=== PATIENT | male | born 1990 | race Caucasian/White ===

== ENCOUNTER 2019-01-10 08:33 | Emergency (ER) | payer OTHER, MEDICAID ==
[~2019-01-10] VITALS: Ht 175.3 cm; Wt 75.0 kg
[~2019-01-10 08:33] MED LIST: DIVA500T69 PO; GABA-533 PO; MIRT15 PO; QUET200T PO
[2019-01-10] MEDS ORDERED: ONDANSETRON HCL 4 MG/2 ML VIAL IVP ONE (08:45)
[2019-01-10] MEDS ORDERED: SODIUM CHLORIDE 0.9% 1,000 ML IV ONE (08:45)
[2019-01-10 09:10] LABS: BASOPHILS % (AUTO) 0.5 % (0.0-2.0); EOSINOPHILS % (AUTO) 0.9 % (1.0-6.0); HEMATOCRIT 44.3 % (41-53); HEMOGLOBIN 14.3 g/dL (13.5-17.5); LYMPHOCYTES # (AUTO) 1.8 K/uL (1.0-4.8); LYMPHOCYTES % (AUTO) 17.4 % (22.0-44.0); MEAN CORPUSCULAR HEMOGLOBIN 28.5 pg (26.0-34.0); MEAN CORPUSCULAR HGB CONC 32.3 G/dL (31.0-37.0); MEAN CORPUSCULAR VOLUME 88 fL (80-100); MONOCYTES # (AUTO) 0.4 K/uL (0.1-1.0); MONOCYTES % (AUTO) 3.7 % (2.0-9.0); NEUTROPHILS # (AUTO) 8.1 K/uL (1.8-7.7); NEUTROPHILS % (AUTO) 77.5 % (40.0-70.0); PLATELET COUNT (AUTO) 350 K/uL (150-450); RED BLOOD CELL COUNT(AUTO) 5.02 MIL/uL (4.50-5.90); RED CELL DISTRIBUTION WIDTH 14.3 % (11.5-14.5)
[2019-01-10 09:19] LABS: ANION GAP 10 mmol/L (8-16); CALCIUM, TOTAL 10.4 mg/dL (8.8-10.5); CARBON DIOXIDE 28 mmol/L (22-29); CHLORIDE 105 mmol/L (98-107); CREATININE 0.82 mg/dL (0.60-1.30); GLOMERULAR FILTR. RATE CALC > 60 mL/min (>60); GLUCOSE,RANDOM 107 mg/dL (70-110); POTASSIUM 3.4 mmol/L (3.5-5.1); SODIUM SERUM 143 mmol/L (136-145); UREA NITROGEN, BLOOD 17 mg/dL (7-18)
[2019-01-10 09:25] LABS: ALANINE AMINOTRANSFERASE 38 U/L (12-78); ALBUMIN 3.9 g/dL (3.4-5.0); ALKALINE PHOSPHATASE 72 U/L (46-116); ASPARTATE AMINOTRANSFERASE 25 U/L (15-37); BILIRUBIN,TOTAL 0.3 mg/dL (0.1-1.0); LIPASE 379 U/L (73-393); TOTAL PROTEIN, SERUM 7.9 g/dL (6.4-8.2)
[2019-01-10 13:04] VITALS: BP 131/78
== END 2019-01-10 13:39 | disposition home or self-care (01) ==
LOC: EMS 08:34
DX: T62.0X1A Toxic effect of ingested mushrooms, accidental (unintentional), initial encounter (principal); F25.9 Schizoaffective disorder, unspecified; F41.9 Anxiety disorder, unspecified; F31.9 Bipolar disorder, unspecified; F17.210 Nicotine dependence, cigarettes, uncomplicated; F12.90 Cannabis use, unspecified, uncomplicated; Z59.0 Homelessness; Y92.89 Other specified places as the place of occurrence of the external cause
CPT/HCPCS: 36415; 80053; 83690; 85025; 96374; 99283; G0480; J2405; J7030

== ENCOUNTER 2022-01-20 12:55 | Inpatient (IN) | payer MEDICAID, OTHER ==
[~2022-01-20] VITALS: Ht 175.3 cm; Wt 84.9 kg
[2022-01-20] MEDS ORDERED: QUET25TA PO (12:59)
[2022-01-20] MEDS ORDERED: BUSP5TAB20 PO (12:59)
[2022-01-20 13:28] LABS: COVID AG,FIA SOURCE NASOPHARYNGEAL
[2022-01-20 13:30] LABS: BASOPHILS % (AUTO) 0.9 % (0.0-2.0); EOSINOPHILS % (AUTO) 2.6 % (1.0-6.0); HEMATOCRIT 39.1 % (41-53); LYMPHOCYTES # (AUTO) 2.6 K/uL (1.0-4.8); LYMPHOCYTES % (AUTO) 21.3 % (22.0-44.0); MEAN CORPUSCULAR HEMOGLOBIN 28.5 pg (26.0-34.0); MEAN CORPUSCULAR HGB CONC 33.2 G/dL (31.0-37.0); MEAN CORPUSCULAR VOLUME 86 fL (80-100); MONOCYTES # (AUTO) 1.3 K/uL (0.1-1.0); MONOCYTES % (AUTO) 10.6 % (2.0-9.0); NEUTROPHILS # (AUTO) 7.8 K/uL (1.8-7.7); NEUTROPHILS % (AUTO) 64.6 % (40.0-70.0); PLATELET COUNT (AUTO) 373 K/uL (150-450); RED BLOOD CELL COUNT(AUTO) 4.55 MIL/uL (4.50-5.90)
[2022-01-20 13:39] LABS: ANION GAP 7 mmol/L (8-16); CARBON DIOXIDE 27 mmol/L (22-29); CHLORIDE 101 mmol/L (98-107); CREATININE 0.88 mg/dL (0.60-1.30); GLOMERULAR FILTR. RATE CALC > 60 mL/min (>60); GLUCOSE,RANDOM 100 mg/dL (70-110); POTASSIUM 3.5 mmol/L (3.5-5.1); SODIUM SERUM 135 mmol/L (136-145); UREA NITROGEN, BLOOD 7 mg/dL (7-18)
[2022-01-20 13:45] LABS: ALANINE AMINOTRANSFERASE 152 U/L (12-78); ALBUMIN 3.7 g/dL (3.4-5.0); ALKALINE PHOSPHATASE 87 U/L (46-116); ASPARTATE AMINOTRANSFERASE 54 U/L (15-37); BILIRUBIN,TOTAL 0.5 mg/dL (0.1-1.0); TOTAL PROTEIN, SERUM 7.3 g/dL (6.4-8.2)
[2022-01-20 14:50] LABS: AMPHET/METH SCREEN,URINE NEGATIVE (NEGATIVE); BARBITURATE SCREEN, URINE NEGATIVE (NEGATIVE); BENZODIAZEPINES SCREEN,URINE NEGATIVE (NEGATIVE); CANNABINOID SCREEN,URINE POSITIVE (NEGATIVE); COCAINE SCREEN,URINE NEGATIVE (NEGATIVE); METHADONE SCREEN, URINE NEGATIVE (NEGATIVE); OPIATE SCREEN,URINE NEGATIVE (NEGATIVE)
[2022-01-20 14:54] LABS: PHENCYCLIDINE SCREEN,URINE NEGATIVE (NEGATIVE)
[2022-01-20] MEDS ORDERED: ZOLPIDEM TARTRATE 10 MG TABLET PO PRN (15:45)
[2022-01-20] MEDS: LORazepam 2 MG TABLET PO PRN (19:25)
[2022-01-20] MEDS: HALOPERIDOL 5 MG TABLET PO PRN (19:25)
[2022-01-20 23:14] VITALS: BP 110/68
[2022-01-21] MEDS ORDERED: DiphenhydrAMINE HCL 50 MG/ML VIAL IM ONE (04:15)
[2022-01-21] MEDS ORDERED: LORazepam 2 MG/ML VIAL IM ONE (04:15)
[2022-01-21] MEDS ORDERED: HALOPERIDOL LACTATE 5 MG/ML VIAL IM ONE (04:15)
[2022-01-21] MEDS ORDERED: LORazepam 2 MG/ML VIAL ONE (04:18)
[2022-01-21 07:38] LABS: HEMATOCRIT 37.7 % (41-53); HEMOGLOBIN 12.7 g/dL (13.5-17.5); MEAN CORPUSCULAR HGB CONC 33.6 G/dL (31.0-37.0); MEAN CORPUSCULAR VOLUME 86 fL (80-100); PLATELET COUNT (AUTO) 316 K/uL (150-450); RED BLOOD CELL COUNT(AUTO) 4.37 MIL/uL (4.50-5.90)
[2022-01-21 07:48] LABS: HEMOGLOBIN A1C 5.2 % (3.8-5.6)
[2022-01-21] MEDS ORDERED: DOCUSATE SODIUM 100 MG CAPSULE PO PRN (08:00)
[2022-01-21] MEDS ORDERED: IBUPROFEN 400 MG TABLET PO PRN (08:00)
[2022-01-21] MEDS ORDERED: LOPERAMIDE HCL 2 MG CAPSULE PO PRN (08:00)
[2022-01-21] MEDS ORDERED: ALBUTEROL SULFATE HFA 90 MCG/PUFF 8 GM INHALER IH PRN (08:00)
[2022-01-21] MEDS ORDERED: MAG HYDROX/AL HYDROX/SIMETH ES 30 ML SUSPENSION UDCUP PO PRN (08:00)
[2022-01-21] MEDS ORDERED: NICOTINE 14 MG/24 HOUR PATCH TD PRN (08:00)
[2022-01-21] MEDS ORDERED: GuaiFENesin/D-METHORPHAN [SUGAR-FREE] 200-20MG/10 ML SYRUP UDCUP PO PRN (08:00)
[2022-01-21] MEDS ORDERED: PETROLATUM,WHITE 28 GM JELLY TP PRN (08:00)
[2022-01-21] MEDS ORDERED: ACETAMINOPHEN 325 MG TABLET PO PRN (08:00)
[2022-01-21] MEDS ORDERED: ONDANSETRON HCL 4 MG TABLET PO PRN (08:00)
[2022-01-21] MEDS ORDERED: CloNIDine HCL 0.1 MG TABLET PO PRN (08:00)
[2022-01-21] MEDS ORDERED: MAGNESIUM HYDROXIDE SUSPENSION 30 ML UDCUP PO PRN (08:00)
[2022-01-21 08:07] LABS: ALANINE AMINOTRANSFERASE 103 U/L (12-78); ALBUMIN 2.8 g/dL (3.4-5.0); ALKALINE PHOSPHATASE 63 U/L (46-116); ANION GAP 8 mmol/L (8-16); ASPARTATE AMINOTRANSFERASE 38 U/L (15-37); BILIRUBIN,TOTAL 0.4 mg/dL (0.1-1.0); CALCIUM, TOTAL 7.9 mg/dL (8.8-10.5); CARBON DIOXIDE 26 mmol/L (22-29); CHLORIDE 105 mmol/L (98-107); CHOL/HDL RATIO 2.9 (4.2-7.3); CHOLESTEROL 105 mg/dL (131-200); CREATININE 0.67 mg/dL (0.60-1.30); FREE T4 (FREE THYROXINE) 1.35 ng/dL (0.76-1.46); GLUCOSE,RANDOM 93 mg/dL (70-110); HDL CHOLESTEROL 36 mg/dL (40-60); LDL CHOL (CALC.) 59 mg/dL (0-130); POTASSIUM 3.2 mmol/L (3.5-5.1); SODIUM SERUM 139 mmol/L (136-145); THYROID STIMULATING HORMONE 0.38 uIU/mL (0.36-3.74); TOTAL PROTEIN, SERUM 5.8 g/dL (6.4-8.2); TRIGLYCERIDES 50 mg/dL (15-150); UREA NITROGEN, BLOOD 5 mg/dL (7-18)
[2022-01-21 08:08] LABS: GLOMERULAR FILTR. RATE CALC > 60 mL/min (>60)
[2022-01-21 08:34] LABS: BAND NEUTROPHILS % (MANUAL) 1 % (0-5); EOSINOPHILS % (MANUAL) 16 % (1-6); LYMPHOCYTES % (MANUAL) 16 % (22-44); MONOCYTES % (MANUAL) 9 % (2-9); SEGMENTED NEUTROPHILS % 58 % (40-70)
[2022-01-21 09:10] VITALS: BP 121/74
[2022-01-21] MEDS ORDERED: HALO10TA20 PO (10:47)
[2022-01-21] MEDS ORDERED: LITH300C3 PO (10:47)
[2022-01-21] MEDS ORDERED: BUSP10TA3 PO (10:47)
[2022-01-21] MEDS: LITHIUM CARBONATE 300 MG CAPSULE PO SCH ×2 (11:19→16:04)
[2022-01-21] MEDS: BusPIRone HCL 10 MG TABLET PO SCH ×2 (11:19→20:01)
[2022-01-21 11:55] LABS: APPEARANCE,URINE CLEAR (CLEAR); BILIRUBIN,URINE NEGATIVE (NEGATIVE); GLUCOSE, URINE (UA) NEGATIVE (NEGATIVE); KETONES,URINE NEGATIVE (NEGATIVE); LEUKOCYTE ESTERASE ,URINE NEGATIVE (NEGATIVE); NITRATE,URINE NEGATIVE (NEGATIVE); OCCULT BLOOD,URINE NEGATIVE (NEGATIVE); PROTEIN,URINE NEGATIVE (NEGATIVE); SPECIFIC GRAVITIY, URINE 1.002 (1.003-1.030); UROBILINOGEN,URINE <=1.0 mg/dL (<=1.0)
[2022-01-21] MEDS: LORazepam 2 MG TABLET PO PRN (15:10)
[2022-01-21] MEDS: HALOPERIDOL 5 MG TABLET PO PRN (15:10)
[2022-01-21] MEDS: HALOPERIDOL 10 MG TABLET PO SCH (20:01)
[2022-01-21 20:58] VITALS: BP 139/80
[2022-01-22 08:27] VITALS: BP 118/70
[2022-01-22] MEDS: LITHIUM CARBONATE 300 MG CAPSULE PO SCH ×2 (08:41→16:33)
[2022-01-22] MEDS: BusPIRone HCL 10 MG TABLET PO SCH ×2 (08:41→20:40)
[2022-01-22] MEDS: LORazepam 2 MG TABLET PO PRN (13:22)
[2022-01-22] MEDS ORDERED: LITH600C5 PO (20:37)
[2022-01-22 20:39] VITALS: BP 121/76
[2022-01-22] MEDS: HALOPERIDOL 10 MG TABLET PO SCH (20:40)
[2022-01-23] MEDS: LITHIUM CARBONATE 300 MG CAPSULE PO SCH ×2 (09:04→17:31)
[2022-01-23] MEDS: BusPIRone HCL 10 MG TABLET PO SCH ×2 (09:04→20:50)
[2022-01-23 09:53] VITALS: BP 124/70
[2022-01-23] MEDS: LORazepam 2 MG TABLET PO PRN (18:43)
[2022-01-23 20:22] VITALS: BP 138/79
[2022-01-23] MEDS: HALOPERIDOL 10 MG TABLET PO SCH (20:50)
[2022-01-24] MEDS: LITHIUM CARBONATE 300 MG CAPSULE PO SCH ×2 (08:39→16:38)
[2022-01-24] MEDS: BusPIRone HCL 10 MG TABLET PO SCH ×2 (08:39→20:32)
[2022-01-24 08:56] VITALS: BP 143/96
[2022-01-24] MEDS: LORazepam 2 MG TABLET PO PRN (14:20)
[2022-01-24] MEDS: HALOPERIDOL 10 MG TABLET PO SCH (20:32)
[2022-01-24 20:49] VITALS: BP 141/78
[2022-01-25] MEDS: LITHIUM CARBONATE 300 MG CAPSULE PO SCH ×2 (08:35→16:36)
[2022-01-25] MEDS: BusPIRone HCL 10 MG TABLET PO SCH ×2 (08:35→20:21)
[2022-01-25 09:26] VITALS: BP 140/90
[2022-01-25] MEDS: LORazepam 2 MG TABLET PO PRN ×2 (09:39→16:36)
[2022-01-25] MEDS: HALOPERIDOL 5 MG TABLET PO PRN ×2 (09:39→16:36)
[2022-01-25 16:36] VITALS: BP 129/86
[2022-01-25] MEDS: HALOPERIDOL 10 MG TABLET PO SCH (20:21)
[2022-01-25 21:12] VITALS: BP_SYST 118; BP_SYST 129; BP_DIAS 77; BP_DIAS 86
[2022-01-26] MEDS: LORazepam 2 MG TABLET PO PRN ×2 (07:54→18:58)
[2022-01-26] MEDS: HALOPERIDOL 5 MG TABLET PO PRN (07:55)
[2022-01-26] MEDS: BusPIRone HCL 10 MG TABLET PO SCH ×2 (08:25→20:34)
[2022-01-26 08:26] VITALS: BP 140/74
[2022-01-26] MEDS: LITHIUM CARBONATE 300 MG CAPSULE PO SCH ×2 (08:26→16:31)
[2022-01-26 20:15] VITALS: BP 106/61
[2022-01-26] MEDS: HALOPERIDOL 10 MG TABLET PO SCH (20:34)
[2022-01-27 08:27] VITALS: BP 122/64
[2022-01-27] MEDS: BusPIRone HCL 10 MG TABLET PO SCH ×2 (09:21→20:45)
[2022-01-27] MEDS: HALOPERIDOL 10 MG TABLET PO SCH ×2 (09:21→20:45)
[2022-01-27] MEDS: LITHIUM CARBONATE 300 MG CAPSULE PO SCH ×2 (09:21→16:25)
[2022-01-27] MEDS: LORazepam 2 MG TABLET PO PRN ×2 (09:46→18:58)
[2022-01-27 22:42] VITALS: BP 136/72
[2022-01-28 08:54] VITALS: BP 129/89
[2022-01-28] MEDS: BusPIRone HCL 10 MG TABLET PO SCH ×2 (08:55→20:07)
[2022-01-28] MEDS: LITHIUM CARBONATE 300 MG CAPSULE PO SCH ×2 (08:55→16:52)
[2022-01-28] MEDS: HALOPERIDOL 10 MG TABLET PO SCH ×2 (08:55→20:07)
[2022-01-28 20:35] VITALS: BP 132/86
[2022-01-29] MEDS: LORazepam 2 MG TABLET PO PRN (05:42)
[2022-01-29] MEDS: HALOPERIDOL 5 MG TABLET PO PRN (05:42)
[2022-01-29 08:21] VITALS: BP 121/69
[2022-01-29] MEDS: HALOPERIDOL 10 MG TABLET PO SCH ×2 (08:39→20:07)
[2022-01-29] MEDS: BusPIRone HCL 10 MG TABLET PO SCH ×2 (08:39→20:07)
[2022-01-29] MEDS: LITHIUM CARBONATE 300 MG CAPSULE PO SCH ×2 (08:40→16:59)
[2022-01-29 20:18] VITALS: BP 127/61
[2022-01-30] MEDS: BusPIRone HCL 10 MG TABLET PO SCH ×2 (08:40→20:41)
[2022-01-30] MEDS: HALOPERIDOL 10 MG TABLET PO SCH ×2 (08:41→20:42)
[2022-01-30] MEDS: LITHIUM CARBONATE 300 MG CAPSULE PO SCH ×2 (08:41→16:55)
[2022-01-30 08:43] VITALS: BP 143/94
[2022-01-30] MEDS: LORazepam 2 MG TABLET PO PRN (09:12)
[2022-01-30] MEDS ORDERED: HALOPERIDOL LACTATE 5 MG/ML VIAL ONE ×2 (16:07→16:08)
[2022-01-30] MEDS ORDERED: LORazepam 2 MG/ML VIAL ONE (16:07)
[2022-01-30] MEDS ORDERED: DiphenhydrAMINE HCL 50 MG/ML VIAL ONE ×2 (16:07→16:08)
[2022-01-30] MEDS ORDERED: DiphenhydrAMINE HCL 50 MG/ML VIAL IM ONE (16:15)
[2022-01-30] MEDS ORDERED: LORazepam 2 MG/ML VIAL IM ONE (16:15)
[2022-01-30] MEDS ORDERED: HALOPERIDOL LACTATE 5 MG/ML VIAL IM ONE (16:15)
[2022-01-30 20:39] VITALS: BP 130/64
[2022-01-31] MEDS ORDERED: LORazepam 2 MG/ML VIAL IM ONE (03:00)
[2022-01-31] MEDS ORDERED: HALOPERIDOL LACTATE 5 MG/ML VIAL IM ONE (03:00)
[2022-01-31] MEDS ORDERED: DiphenhydrAMINE HCL 50 MG/ML VIAL IM ONE (03:00)
[2022-01-31] MEDS: BusPIRone HCL 10 MG TABLET PO SCH (09:12)
[2022-01-31] MEDS: HALOPERIDOL 10 MG TABLET PO SCH (09:12)
[2022-01-31] MEDS: LITHIUM CARBONATE 300 MG CAPSULE PO SCH (09:12)
== END 2022-01-31 10:15 | disposition left against medical advice (07) | DRG 750 ==
LOC: EMS 12:55 → B2S 19:10 → B3A 01-30 17:38
PROVIDERS: ADMIT Psychiatry & Neurology Psychiatry; ATTEND Psychiatry & Neurology Psychiatry
DX: F20.0 Paranoid schizophrenia (principal); E87.1 Hypo-osmolality and hyponatremia; R45.851 Suicidal ideations; D72.829 Elevated white blood cell count, unspecified; Z20.822 Contact with and (suspected) exposure to COVID-19; F12.10 Cannabis abuse, uncomplicated; D64.9 Anemia, unspecified; Z53.29 Procedure and treatment not carried out because of patient's decision for other reasons; E87.6 Hypokalemia; F10.10 Alcohol abuse, uncomplicated; F17.210 Nicotine dependence, cigarettes, uncomplicated; F31.9 Bipolar disorder, unspecified; Z59.00 Homelessness unspecified; Z79.899 Other long term (current) drug therapy; Z71.41 Alcohol abuse counseling and surveillance of alcoholic; Z71.51 Drug abuse counseling and surveillance of drug abuser
CPT/HCPCS: 80053; 80061; 80178; 81003; 83036; 84132; 84439; 84443; 85007; 85025; 85027; 99285; G0480; J1200; J1630; J2060

== ENCOUNTER 2023-05-15 19:01 | Inpatient (IN) | payer MEDICAID ==
[~2023-05-15] VITALS: Ht 180.3 cm; Wt 69.5 kg
[2023-05-15] MEDS ORDERED: TUBERCULIN, PURIFIED PROTEIN DERIVATIVE 5 TU/0.1 ML SYRINGE ID ONE (19:45)
[2023-05-15] MEDS ORDERED: GuaiFENesin/D-METHORPHAN [SUGAR-FREE] 200-20MG/10 ML SYRUP UDCUP PO PRN (19:45)
[2023-05-15] MEDS ORDERED: LOPERAMIDE HCL 2 MG CAPSULE PO PRN (19:45)
[2023-05-15] MEDS ORDERED: ACETAMINOPHEN 325 MG TABLET PO PRN (19:45)
[2023-05-15] MEDS ORDERED: MAGNESIUM HYDROXIDE SUSPENSION 30 ML UDCUP PO PRN (19:45)
[2023-05-15] MEDS ORDERED: PROMETHAZINE HCL 25 MG TABLET PO PRN (19:45)
[2023-05-15] MEDS ORDERED: MAG HYDROX/ALUMINUM HYD/SIMETH ES 30 ML SUSPENSION UDCUP PO PRN (19:45)
[2023-05-15] MEDS ORDERED: HydrOXYzine PAMOATE 50 MG CAPSULE PO PRN (19:45)
[2023-05-15] MEDS ORDERED: ZOLPIDEM TARTRATE 10 MG TABLET PO PRN (19:45)
[2023-05-15 19:46] LABS: GLUCOMETER DEV NAME(LOC) POC.BV; POC SARS-COV2 AG, FIA NEGATIVE (NEGATIVE)
[2023-05-15 19:55] VITALS: BP 124/66; PULSE 83; RESP 18; TEMP 98.4
[2023-05-15] MEDS ORDERED: LEVE500T8 PO (20:09)
[2023-05-15] MEDS ORDERED: LITH300C3 PO (20:09)
[2023-05-15] MEDS ORDERED: BUSP10TA23 PO (20:09)
[2023-05-15] MEDS ORDERED: LITH600C PO (20:09)
[2023-05-15] MEDS ORDERED: HALO10TA21 PO ×2 (20:09)
[2023-05-15] MEDS ORDERED: BENZ0.5T6 PO (20:09)
[2023-05-15 20:54] VITALS: BP 124/66; PULSE 83; RESP 18; TEMP 98.4; O2SAT 100
[2023-05-15 21:19] VITALS: BP 124/66; PULSE 83; RESP 18; TEMP 98.4
[2023-05-15] MEDS: MELATONIN 5 MG TABLET PO SCH (21:28)
[2023-05-15] MEDS: LITHIUM CARBONATE 300 MG CAPSULE PO SCH (21:28)
[2023-05-15] MEDS: THIAMINE 100 MG TABLET PO SCH (21:28)
[2023-05-15] MEDS: LevETIRAcetam 500 MG TABLET PO SCH (21:28)
[2023-05-15] MEDS: HALOPERIDOL 10 MG TABLET PO SCH (21:28)
[2023-05-15] MEDS: BENZTROPINE MESYLATE 0.5 MG TABLET PO SCH (21:28)
[2023-05-15] MEDS ORDERED: INFLUENZA VIRUS VACCINE QVS 2023-24 (6MO+)/PF 60 MCG/0.5 ML SYRINGE IM. ONE (21:30)
[2023-05-16] MEDS: THIAMINE 100 MG TABLET PO SCH ×2 (08:27→16:40)
[2023-05-16] MEDS: BENZTROPINE MESYLATE 0.5 MG TABLET PO SCH ×2 (08:27→16:40)
[2023-05-16] MEDS: OMEGA-3/DHA/EPA/FISH OIL 1,000 MG CAPSULE PO SCH (08:27)
[2023-05-16] MEDS: NALTREXONE HCL 50 MG TABLET PO SCH (08:27)
[2023-05-16] MEDS: MULTIVITAMINS WITH MINERALS, THERAPEUTIC TABLET PO SCH (08:27)
[2023-05-16] MEDS: LORazepam 2 MG TABLET PO PRN ×2 (08:28→16:43)
[2023-05-16] MEDS: FOLIC ACID 1 MG TABLET PO SCH (08:28)
[2023-05-16] MEDS: LevETIRAcetam 500 MG TABLET PO SCH ×2 (08:28→16:40)
[2023-05-16 08:45] VITALS: BP 123/78; PULSE 64; RESP 17; TEMP 97.7; O2SAT 99
[2023-05-16] MEDS: HALOPERIDOL 5 MG TABLET PO PRN (16:43)
[2023-05-16] MEDS: LITHIUM CARBONATE 300 MG CAPSULE PO SCH (20:10)
[2023-05-16] MEDS: MELATONIN 5 MG TABLET PO SCH (20:10)
[2023-05-16] MEDS: HALOPERIDOL 10 MG TABLET PO SCH (20:10)
[2023-05-16] MEDS: DIVALPROEX SODIUM 500 MG ER TABLET PO SCH ×2 (20:22→20:26)
[2023-05-16 20:30] VITALS: BP 116/62; PULSE 70; RESP 16; TEMP 97.8; O2SAT 96
[2023-05-17 02:44] VITALS: BP 104/61; PULSE 78; RESP 17; TEMP 98.4; O2SAT 99
[2023-05-17] MEDS: LORazepam 2 MG TABLET PO PRN ×2 (07:49→16:45)
[2023-05-17] MEDS: OMEGA-3/DHA/EPA/FISH OIL 1,000 MG CAPSULE PO SCH (08:16)
[2023-05-17] MEDS: BENZTROPINE MESYLATE 0.5 MG TABLET PO SCH ×2 (08:16→16:45)
[2023-05-17] MEDS: THIAMINE 100 MG TABLET PO SCH ×2 (08:16→16:45)
[2023-05-17] MEDS: FOLIC ACID 1 MG TABLET PO SCH (08:16)
[2023-05-17] MEDS: LevETIRAcetam 500 MG TABLET PO SCH ×2 (08:16→16:45)
[2023-05-17] MEDS: NALTREXONE HCL 50 MG TABLET PO SCH (08:16)
[2023-05-17] MEDS: MULTIVITAMINS WITH MINERALS, THERAPEUTIC TABLET PO SCH (08:16)
[2023-05-17 08:20] LABS: BASOPHILS % (AUTO) 0.5 % (0.0-2.0); EOSINOPHILS % (AUTO) 3.8 % (1.0-6.0); HEMATOCRIT 44.6 % (41-53); HEMOGLOBIN 14.9 g/dL (13.5-17.5); LYMPHOCYTES # (AUTO) 2.3 K/uL (1.0-4.8); LYMPHOCYTES % (AUTO) 23.6 % (22.0-44.0); MEAN CORPUSCULAR HEMOGLOBIN 29.8 pg (26.0-34.0); MEAN CORPUSCULAR HGB CONC 33.4 G/dL (31.0-37.0); MEAN CORPUSCULAR VOLUME 89 fL (80-100); MONOCYTES # (AUTO) 0.6 K/uL (0.1-1.0); MONOCYTES % (AUTO) 6.5 % (2.0-9.0); NEUTROPHILS # (AUTO) 6.5 K/uL (1.8-7.7); NEUTROPHILS % (AUTO) 65.6 % (40.0-70.0); PLATELET COUNT (AUTO) 280 K/uL (150-450); WHITE BLOOD COUNT (AUTO) 9.9 K/uL (4.5-11.0)
[2023-05-17 08:35] LABS: LITHIUM 1.21 mmol/L (0.60-1.20)
[2023-05-17 08:46] LABS: ALANINE AMINOTRANSFERASE 40 U/L (12-78); ALBUMIN 3.8 g/dL (3.4-5.0); ALKALINE PHOSPHATASE 82 U/L (46-116); ANION GAP 3 mmol/L (8-16); ASPARTATE AMINOTRANSFERASE 25 U/L (15-37); BILIRUBIN,TOTAL 0.5 mg/dL (0.1-1.0); CALCIUM, TOTAL 9.8 mg/dL (8.8-10.5); CARBON DIOXIDE 31 mmol/L (22-29); CHLORIDE 103 mmol/L (98-107); CHOL/HDL RATIO 3.3 (4.2-7.3); CHOLESTEROL 160 mg/dL (131-200); CREATININE 1.02 mg/dL (0.60-1.30); FREE T4 (FREE THYROXINE) 0.91 ng/dL (0.76-1.46); GLOMERULAR FILTR. RATE CALC > 60 mL/min (>60); GLUCOSE,RANDOM 93 mg/dL (70-110); HDL CHOLESTEROL 48 mg/dL (40-60); LDL CHOL (CALC.) 93 mg/dL (0-130); POTASSIUM 4.3 mmol/L (3.5-5.1); SODIUM SERUM 137 mmol/L (136-145); THYROID STIMULATING HORMONE 0.66 uIU/mL (0.36-3.74); TOTAL PROTEIN, SERUM 7.6 g/dL (6.4-8.2); TRIGLYCERIDES 93 mg/dL (15-150); UREA NITROGEN, BLOOD 8 mg/dL (7-18)
[2023-05-17 09:13] VITALS: BP 137/87; PULSE 84; RESP 17; TEMP 97.6; O2SAT 97
[2023-05-17] MEDS: LITHIUM CARBONATE 300 MG CAPSULE PO SCH (20:09)
[2023-05-17] MEDS: HALOPERIDOL 10 MG TABLET PO SCH (20:10)
[2023-05-17] MEDS: MELATONIN 5 MG TABLET PO SCH (20:10)
[2023-05-17 21:35] VITALS: BP 127/93; PULSE 65; RESP 18; TEMP 98.4; O2SAT 97
[2023-05-18] MEDS: LORazepam 2 MG TABLET PO PRN (07:53)
[2023-05-18] MEDS: LevETIRAcetam 500 MG TABLET PO SCH ×2 (08:01→17:23)
[2023-05-18] MEDS: FOLIC ACID 1 MG TABLET PO SCH (08:02)
[2023-05-18] MEDS: NALTREXONE HCL 50 MG TABLET PO SCH (08:02)
[2023-05-18] MEDS: OMEGA-3/DHA/EPA/FISH OIL 1,000 MG CAPSULE PO SCH (08:02)
[2023-05-18] MEDS: MULTIVITAMINS WITH MINERALS, THERAPEUTIC TABLET PO SCH (08:02)
[2023-05-18] MEDS: THIAMINE 100 MG TABLET PO SCH ×2 (08:02→17:23)
[2023-05-18] MEDS: BENZTROPINE MESYLATE 0.5 MG TABLET PO SCH ×2 (08:02→17:23)
[2023-05-18 08:34] VITALS: BP 100/68; PULSE 76; RESP 17; TEMP 98; O2SAT 97
[2023-05-18 09:07] LABS: HEPATITIS A ANTIBODY IGM Negative (Negative); HEPATITIS B CORE IGM Negative (Negative); HEPATITIS C AB (EIA) Non Reactive (Non Reactive)
[2023-05-18] MEDS: MELATONIN 5 MG TABLET PO SCH (20:37)
[2023-05-18] MEDS: LITHIUM CARBONATE 300 MG CAPSULE PO SCH (20:37)
[2023-05-18] MEDS: HALOPERIDOL 10 MG TABLET PO SCH (20:37)
[2023-05-18 23:55] VITALS: BP 122/78; PULSE 75; RESP 18; TEMP 98; O2SAT 99
[2023-05-19] MEDS: BENZTROPINE MESYLATE 0.5 MG TABLET PO SCH ×2 (08:32→16:34)
[2023-05-19] MEDS: LORazepam 2 MG TABLET PO PRN ×3 (08:32→20:13)
[2023-05-19] MEDS: LevETIRAcetam 500 MG TABLET PO SCH ×2 (08:32→16:34)
[2023-05-19] MEDS: THIAMINE 100 MG TABLET PO SCH ×2 (08:32→16:34)
[2023-05-19] MEDS: FOLIC ACID 1 MG TABLET PO SCH (08:32)
[2023-05-19] MEDS: MULTIVITAMINS WITH MINERALS, THERAPEUTIC TABLET PO SCH (08:32)
[2023-05-19] MEDS: OMEGA-3/DHA/EPA/FISH OIL 1,000 MG CAPSULE PO SCH (08:33)
[2023-05-19] MEDS: NALTREXONE HCL 50 MG TABLET PO SCH (08:33)
[2023-05-19 16:16] VITALS: BP 107/69; PULSE 100; RESP 18; TEMP 98.4; O2SAT 97
[2023-05-19] MEDS: MELATONIN 5 MG TABLET PO SCH (20:13)
[2023-05-19] MEDS: LITHIUM CARBONATE 300 MG CAPSULE PO SCH (20:13)
[2023-05-19] MEDS: HALOPERIDOL 10 MG TABLET PO SCH (20:13)
[2023-05-19 21:04] VITALS: BP 115/71; PULSE 98; RESP 18; TEMP 98.1; O2SAT 99
[2023-05-20 08:09] VITALS: BP 110/61; PULSE 61; RESP 16; TEMP 97.3
[2023-05-20] MEDS: LevETIRAcetam 500 MG TABLET PO SCH ×2 (08:12→16:07)
[2023-05-20] MEDS: BENZTROPINE MESYLATE 0.5 MG TABLET PO SCH ×2 (08:12→16:07)
[2023-05-20] MEDS: OMEGA-3/DHA/EPA/FISH OIL 1,000 MG CAPSULE PO SCH (08:12)
[2023-05-20] MEDS: MULTIVITAMINS WITH MINERALS, THERAPEUTIC TABLET PO SCH (08:12)
[2023-05-20] MEDS: THIAMINE 100 MG TABLET PO SCH ×2 (08:12→16:07)
[2023-05-20] MEDS: NALTREXONE HCL 50 MG TABLET PO SCH (08:12)
[2023-05-20] MEDS: FOLIC ACID 1 MG TABLET PO SCH (08:12)
[2023-05-20] MEDS: BuPROPion HCL XL 150 MG ER TABLET PO SCH (08:12)
[2023-05-20] MEDS: LORazepam 2 MG TABLET PO PRN (13:29)
[2023-05-20] MEDS: MELATONIN 5 MG TABLET PO SCH (20:16)
[2023-05-20] MEDS: HALOPERIDOL 10 MG TABLET PO SCH (20:16)
[2023-05-20] MEDS: LITHIUM CARBONATE 300 MG CAPSULE PO SCH (20:16)
[2023-05-20 20:32] VITALS: BP 106/69; RESP 18; TEMP 98
[2023-05-21] MEDS: LORazepam 2 MG TABLET PO PRN (07:47)
[2023-05-21] MEDS: FOLIC ACID 1 MG TABLET PO SCH (08:08)
[2023-05-21] MEDS: OMEGA-3/DHA/EPA/FISH OIL 1,000 MG CAPSULE PO SCH (08:08)
[2023-05-21] MEDS: MULTIVITAMINS WITH MINERALS, THERAPEUTIC TABLET PO SCH (08:08)
[2023-05-21] MEDS: THIAMINE 100 MG TABLET PO SCH ×2 (08:08→17:29)
[2023-05-21] MEDS: BENZTROPINE MESYLATE 0.5 MG TABLET PO SCH ×2 (08:08→17:29)
[2023-05-21] MEDS: BuPROPion HCL XL 150 MG ER TABLET PO SCH (08:08)
[2023-05-21] MEDS: LevETIRAcetam 500 MG TABLET PO SCH ×2 (08:08→17:29)
[2023-05-21] MEDS: NALTREXONE HCL 50 MG TABLET PO SCH (08:08)
[2023-05-21 09:32] VITALS: BP 106/65; PULSE 80; RESP 17; TEMP 97.7; O2SAT 97
[2023-05-21] MEDS: HALOPERIDOL 10 MG TABLET PO SCH (20:57)
[2023-05-21] MEDS: MELATONIN 5 MG TABLET PO SCH (20:57)
[2023-05-21] MEDS: LITHIUM CARBONATE 300 MG CAPSULE PO SCH (20:57)
[2023-05-21 23:30] VITALS: BP 116/82; PULSE 80; RESP 18; TEMP 97.5; O2SAT 98
[2023-05-22 08:00] VITALS: BP 120/62; PULSE 67; RESP 16; TEMP 98.6; O2SAT 99
[2023-05-22] MEDS: NALTREXONE HCL 50 MG TABLET PO SCH (08:17)
[2023-05-22] MEDS: OMEGA-3/DHA/EPA/FISH OIL 1,000 MG CAPSULE PO SCH (08:18)
[2023-05-22] MEDS: LevETIRAcetam 500 MG TABLET PO SCH ×2 (08:18→17:07)
[2023-05-22] MEDS: BuPROPion HCL XL 150 MG ER TABLET PO SCH (08:18)
[2023-05-22] MEDS: FOLIC ACID 1 MG TABLET PO SCH (08:18)
[2023-05-22] MEDS: THIAMINE 100 MG TABLET PO SCH ×2 (08:18→17:07)
[2023-05-22] MEDS: MULTIVITAMINS WITH MINERALS, THERAPEUTIC TABLET PO SCH (08:18)
[2023-05-22] MEDS: BENZTROPINE MESYLATE 0.5 MG TABLET PO SCH ×2 (08:18→17:07)
[2023-05-22] MEDS: LORazepam 2 MG TABLET PO PRN ×3 (08:42→17:07)
[2023-05-22 20:31] VITALS: BP 107/66; PULSE 79; RESP 20; TEMP 98.6; O2SAT 98
[2023-05-22] MEDS: MELATONIN 5 MG TABLET PO SCH (20:49)
[2023-05-22] MEDS: LITHIUM CARBONATE 300 MG CAPSULE PO SCH (20:49)
[2023-05-22] MEDS: HALOPERIDOL 10 MG TABLET PO SCH (20:49)
[2023-05-23] MEDS: HALOPERIDOL 5 MG TABLET PO PRN (07:58)
[2023-05-23] MEDS: LORazepam 2 MG TABLET PO PRN ×2 (07:58→16:00)
[2023-05-23] MEDS: MULTIVITAMINS WITH MINERALS, THERAPEUTIC TABLET PO SCH (08:01)
[2023-05-23] MEDS: BuPROPion HCL XL 150 MG ER TABLET PO SCH (08:01)
[2023-05-23] MEDS: FOLIC ACID 1 MG TABLET PO SCH (08:01)
[2023-05-23] MEDS: NALTREXONE HCL 50 MG TABLET PO SCH (08:01)
[2023-05-23] MEDS: THIAMINE 100 MG TABLET PO SCH ×2 (08:01→16:00)
[2023-05-23] MEDS: LevETIRAcetam 500 MG TABLET PO SCH ×2 (08:01→16:00)
[2023-05-23] MEDS: BENZTROPINE MESYLATE 0.5 MG TABLET PO SCH ×2 (08:02→16:00)
[2023-05-23] MEDS: OMEGA-3/DHA/EPA/FISH OIL 1,000 MG CAPSULE PO SCH (08:02)
[2023-05-23 08:09] VITALS: BP 117/72; PULSE 80; RESP 17; TEMP 98.2; O2SAT 100
[2023-05-23] MEDS: MELATONIN 5 MG TABLET PO SCH (20:00)
[2023-05-23] MEDS: HALOPERIDOL 10 MG TABLET PO SCH (20:00)
[2023-05-23] MEDS: LITHIUM CARBONATE 300 MG CAPSULE PO SCH (20:00)
[2023-05-23 22:49] VITALS: BP 109/72; PULSE 93; RESP 18; TEMP 97.8; O2SAT 98
[2023-05-24] MEDS: OMEGA-3/DHA/EPA/FISH OIL 1,000 MG CAPSULE PO SCH (08:18)
[2023-05-24] MEDS: LevETIRAcetam 500 MG TABLET PO SCH (08:18)
[2023-05-24] MEDS: HALOPERIDOL 5 MG TABLET PO PRN (08:18)
[2023-05-24] MEDS: NALTREXONE HCL 50 MG TABLET PO SCH (08:18)
[2023-05-24] MEDS: THIAMINE 100 MG TABLET PO SCH (08:18)
[2023-05-24] MEDS: LORazepam 2 MG TABLET PO PRN (08:18)
[2023-05-24] MEDS: FOLIC ACID 1 MG TABLET PO SCH (08:18)
[2023-05-24] MEDS: MULTIVITAMINS WITH MINERALS, THERAPEUTIC TABLET PO SCH (08:19)
[2023-05-24] MEDS: BuPROPion HCL XL 150 MG ER TABLET PO SCH (08:19)
[2023-05-24] MEDS: BENZTROPINE MESYLATE 0.5 MG TABLET PO SCH (08:21)
[2023-05-24 08:57] VITALS: BP 125/77; PULSE 69; RESP 17; TEMP 98.7; O2SAT 100
[2023-05-24] MEDS ORDERED: HALO10TA21 PO ×2 (11:28→14:26)
[2023-05-24] MEDS ORDERED: LITH300C3 PO ×2 (11:28→14:26)
[2023-05-24] MEDS ORDERED: BENZ0.5T6 PO ×2 (11:28→14:26)
[2023-05-24] MEDS ORDERED: LEVE500T8 PO (11:28)
[2023-05-24] MEDS ORDERED: MELA5TAB40 PO ×2 (11:28→14:26)
[2023-05-24] MEDS ORDERED: OMEG-135 PO ×2 (11:28→14:26)
[2023-05-24] MEDS ORDERED: NALT50TA PO (11:28)
[2023-05-24] MEDS ORDERED: BUPR-49 PO (11:28)
[2023-05-24] MEDS ORDERED: BUPR-50 PO (14:26)
[2023-05-24] MEDS ORDERED: NALT50TA6 PO (14:26)
[2023-05-24] MEDS ORDERED: LEVE500T20 PO (14:32)
[2023-05-24 18:21] LABS: GLUCOMETER DEV NAME(LOC) POC.BV; POC SARS-COV2 AG, FIA NEGATIVE (NEGATIVE)
== END 2023-05-24 15:45 | disposition home or self-care (01) | DRG 750 ==
LOC: B3A 20:03
PROVIDERS: ADMIT Psychiatry & Neurology Psychiatry; ATTEND Psychiatry & Neurology Psychiatry
PROC: GZHZZZZ Group Psychotherapy (ICD-10-PCS; principal; 2023-05-15)
DX: F25.0 Schizoaffective disorder, bipolar type (principal); D64.9 Anemia, unspecified; F17.200 Nicotine dependence, unspecified, uncomplicated; J44.9 Chronic obstructive pulmonary disease, unspecified; E87.6 Hypokalemia; Z20.822 Contact with and (suspected) exposure to COVID-19; F19.10 Other psychoactive substance abuse, uncomplicated; Z59.00 Homelessness unspecified; Z88.8 Allergy status to other drugs, medicaments and biological substances; Z79.899 Other long term (current) drug therapy
CPT/HCPCS: 80053; 80061; 80074; 80173; 80178; 83036; 84439; 84443; 85025; 86592; 87081; G0482; Q9967

== ENCOUNTER 2024-01-05 00:15 | Emergency (ER) | payer MEDICAID, OTHER ==
[~2024-01-05] VITALS: Ht 180.3 cm; Wt 70.9 kg
[~2024-01-05 00:15] MED LIST changes: +BENZ0.5T52 PO; +BUPR-49 PO; +BUPR-514 PO; -DIVA500T69 PO; -GABA-533 PO; +HALO10TA21 PO; +LEVE-71 PO; +LEVE500T8 PO; +LITH300C3 PO; +MELA5TAB40 PO; -MIRT15 PO; +NALT50TA33 PO; +NALT50TA6 PO; +OMEG-135 PO; -QUET200T PO
[2024-01-05 00:17] VITALS: BP 110/66; PULSE 85; RESP 16; TEMP 98
[2024-01-05 00:54] LABS: BASOPHILS % (AUTO) 0.8 % (0.0-2.0); EOSINOPHILS % (AUTO) 2.4 % (1.0-6.0); HEMATOCRIT 41.6 % (41-53); HEMOGLOBIN 13.6 g/dL (13.5-17.5); LYMPHOCYTES # (AUTO) 2.8 K/uL (1.0-4.8); LYMPHOCYTES % (AUTO) 31.4 % (22.0-44.0); MEAN CORPUSCULAR HEMOGLOBIN 28.4 pg (26.0-34.0); MEAN CORPUSCULAR HGB CONC 32.6 G/dL (31.0-37.0); MEAN CORPUSCULAR VOLUME 87 fL (80-100); MONOCYTES # (AUTO) 0.9 K/uL (0.1-1.0); MONOCYTES % (AUTO) 9.9 % (2.0-9.0); NEUTROPHILS # (AUTO) 4.9 K/uL (1.8-7.7); NEUTROPHILS % (AUTO) 55.5 % (40.0-70.0); PLATELET COUNT (AUTO) 265 K/uL (150-450); RED BLOOD CELL COUNT(AUTO) 4.78 MIL/uL (4.50-5.90); RED CELL DISTRIBUTION WIDTH 14.4 % (11.5-14.5); WHITE BLOOD COUNT (AUTO) 8.8 K/uL (4.5-11.0)
[2024-01-05 00:56] LABS: ANION GAP 4 mmol/L (8-16); CALCIUM, TOTAL 9.3 mg/dL (8.8-10.5); CARBON DIOXIDE 32 mmol/L (22-29); CHLORIDE 104 mmol/L (98-107); CREATININE 0.86 mg/dL (0.60-1.30); GLOMERULAR FILTR. RATE CALC > 60 mL/min (>60); GLUCOSE,RANDOM 123 mg/dL (70-110); POTASSIUM 4.1 mmol/L (3.5-5.1); SODIUM SERUM 140 mmol/L (136-145); UREA NITROGEN, BLOOD 21 mg/dL (7-18)
== END 2024-01-05 01:59 | disposition left against medical advice (07) ==
LOC: EMS 00:17
DX: R45.851 Suicidal ideations (principal); Z53.21 Procedure and treatment not carried out due to patient leaving prior to being seen by health care provider
CPT/HCPCS: 80048; 85025